=== PATIENT | female | born 1955 | race Caucasian/White ===

== ENCOUNTER 2017-05-01 06:50 | Outpatient (CLI) | payer BC ==
--- NOTE | 2017-05-01 09:01 | Mammography Report ---
Bilateral screening mammogram tomosynthesis. The current study is compared to previous mammogram on April 30, 2016. Findings: There is heterogeneous density of the fibroglandular tissue. No masses, architectural distortion, or suspicious calcifications are seen. A few scattered benign calcifications in the left breast are stable. Impression: No suspicious findings. BI-RADS code: 1. Recommendation: Annual screening.
== END 2017-05-01 06:51 | disposition home or self-care (01) ==
LOC: MAMMO 06:50
PROVIDERS: ATTEND Internal Medicine
DX: Z12.31 Encounter for screening mammogram for malignant neoplasm of breast (principal)
CPT/HCPCS: 77063; G0202; 77067

== ENCOUNTER 2018-05-06 06:49 | Outpatient (CLI) | payer BC ==
--- NOTE | 2018-05-06 16:26 | Mammography Report ---
BILATERAL DIGITAL SCREENING MAMMOGRAM with CAD: 05/06/18 06:49:00 CLINICAL: Routine screening. COMPARISON:05/01/17 and 04/30/16 FINDINGS: The breasts are heterogeneously dense, which may obscure small masses. No mass, architectural distortion or suspicious calcifications. IMPRESSION: No mammographic evidence of malignancy. BI-RADS CATEGORY: 1 - - Negative RECOMMENDATION: Routine mammographic screening in one year. COMMENT: Patient follow-up letters are generated by our [employer] application.
== END 2018-05-06 06:50 | disposition home or self-care (01) ==
LOC: MAMMO 06:49
PROVIDERS: ATTEND Internal Medicine
DX: Z12.31 Encounter for screening mammogram for malignant neoplasm of breast (principal)
CPT/HCPCS: 77067

== ENCOUNTER 2019-05-12 06:58 | Outpatient (CLI) | payer BC ==
--- NOTE | 2019-05-12 08:15 | Mammography Report ---
DIGITAL SCREENING MAMMOGRAM WITH CAD, 05/12/2019 INDICATION: Routine screening mammography. TECHNIQUE: Digital bilateral 2D mammography was obtained in the craniocaudal and mediolateral obliq ue projections. This examination was interpreted with the benefit of Computer-Aided Detection analysi s. COMPARISON: 05/06/2018 and 04/30/2016 FINDINGS: Breast Density: The breasts are heterogeneously dense, which may obscure small masses. There is no evidence of dominant mass, suspicious calcifications or architectural distortion in eithe r breast. IMPRESSION: No mammographic evidence of malignancy. Follow up recommendation: Routine yearly BI-RADS Category 1: Negative. A "normal" or negative report should not discourage follow up or biopsy of a clinically significant f inding. A written summary of these findings will be mailed to the patient. The patient will be entered into a mammography reporting system which will generate a reminder letter for the patient's next appointmen t at the appropriate interval. The [employer] recommends yearly mammograms starting at age 40 and continuing as l ashley as a woman is in good health. Breast MRI is recommended for women with an approximate 20-25% or greater lifetime risk of breast cancer, including women with a strong family history of breast or ova judy cancer or who have been treated for Hodgkin's disease. Signer Name: Cristiano Pedroza MD Signed: 05/12/2019 8:10 AM Workstation Name: [id number]
== END 2019-05-12 06:59 | disposition home or self-care (01) ==
LOC: MAMMO 06:58
PROVIDERS: ATTEND Internal Medicine
DX: Z12.31 Encounter for screening mammogram for malignant neoplasm of breast (principal)
CPT/HCPCS: 77067

== ENCOUNTER 2020-05-17 16:36 | Outpatient (CLI) | payer BC ==
--- NOTE | 2020-05-18 11:32 | Mammography Report ---
DIGITAL SCREENING MAMMOGRAM WITH CAD, 05/17/2020 INDICATION: Routine screening mammography. TECHNIQUE: Digital bilateral 2D mammography was obtained in the craniocaudal and mediolateral obliq ue projections. This examination was interpreted with the benefit of Computer-Aided Detection analysi s. COMPARISON: Prior mammograms 05/12/2019 and 05/06/2018 FINDINGS: Breast Density: The breasts are heterogeneously dense, which may obscure small masses. There is no evidence of dominant mass, suspicious calcifications or architectural distortion in eithe r breast. There has been no significant change compared with the prior examinations. IMPRESSION: Follow up recommendation: Routine yearly BI-RADS Category 1: Negative. A "normal" or negative report should not discourage follow up or biopsy of a clinically significant f inding. A written summary of these findings will be mailed to the patient. The patient will be entered into a mammography reporting system which will generate a reminder letter for the patient's next appointmen t at the appropriate interval. The [employer] recommends yearly mammograms starting at age 40 and continuing as l ashley as a woman is in good health. Breast MRI is recommended for women with an approximate 20-25% or greater lifetime risk of breast cancer, including women with a strong family history of breast or ova judy cancer or who have been treated for Hodgkin's disease. Signer Name: Marilyn Camacho MD Signed: 05/18/2020 11:27 AM Workstation Name: [id number]
== END 2020-05-17 16:37 | disposition home or self-care (01) ==
LOC: SPVWC 16:36
PROVIDERS: ATTEND Obstetrics & Gynecology
DX: Z12.31 Encounter for screening mammogram for malignant neoplasm of breast (principal)
CPT/HCPCS: 77067

== ENCOUNTER 2021-05-22 07:11 | Outpatient (CLI) | payer BC ==
--- NOTE | 2021-05-23 09:31 | Mammography Report ---
DIGITAL SCREENING MAMMOGRAM WITH CAD, 05/22/2021 CLINICAL INFORMATION / INDICATION: Routine screening mammography. TECHNIQUE: Digital bilateral 2D mammography was obtained in the craniocaudal and mediolateral obliqu e projections. This examination was interpreted with the benefit of Computer-Aided Detection analysis . COMPARISON: Prior mammograms 05/17/2020 and 05/12/2019 FINDINGS: Breast Density: The breasts are extremely dense, which lowers the sensitivity of mammography. No dominant mass, suspicious calcifications, or architectural distortion in either breast. There has been no significant change compared with the prior examinations. IMPRESSION: No mammographic evidence of malignancy. Follow up recommendation: Routine yearly BI-RADS Category 1: Negative. A "normal" or negative report should not discourage follow up or biopsy of a clinically significant f inding. A written summary of these findings will be mailed to the patient. The patient will be entered into a mammography reporting system which will generate a reminder letter for the patient's next appointmen t at the appropriate interval. The [employer] recommends yearly mammograms starting at age 40 and continuing as l ashley as a woman is in good health. Breast MRI is recommended for women with an approximate 20-25% or greater lifetime risk of breast cancer, including women with a strong family history of breast or ova judy cancer or who have been treated for Hodgkin's disease. Signer Name: Marilyn Camacho MD Signed: 05/23/2021 9:25 AM Workstation Name: [id number]
== END 2021-05-22 07:12 | disposition home or self-care (01) ==
LOC: MAMMO 07:11
PROVIDERS: ATTEND Obstetrics & Gynecology
DX: Z12.31 Encounter for screening mammogram for malignant neoplasm of breast (principal)
CPT/HCPCS: 77067